=== PATIENT | male | born 1955 | race Caucasian/White ===

== ENCOUNTER 2021-11-19 11:55 | Outpatient (CLI) | payer OTHER, SELFPAY ==
--- NOTE | 2021-11-19 12:58 | ECG_ITS ---
Measurements Intervals Hector Rate: 61 P: 65 CT: 186 QRS: 29 QRSD: 94 T: 120 QT: 395 QTc: 398 Interpretive Statements SINUS RHYTHM WITH SINUS ARRHYTHMIA DELAYED PRECORDIAL R/S TRANSITION ST-T WAVE ABNORMALITY IN HIGH LATERAL LEADS- CONSIDER ISCHEMIA BASELINE ARTIFACT- I, II, III, AVR, AVL, AVF ABNORMAL ECG Electronically Signed On 11-19-2021 13:15:14 CDT by Gabe Lomax D.O.
[2021-11-19 13:28] LABS: Hematocrit 42.4 % (42.0-52.0); Hemoglobin 13.7 g/dL (14.0-18.0)
[2021-11-19 13:46] LABS: Anion Gap 2 mmol/L (8-16); Blood Urea Nitrogen 23 mg/dL (9-20); Calcium 9.3 mg/dL (8.4-10.2); Carbon Dioxide 31 mmol/L (22-30); Chloride 106 mmol/L (98-107); Estimated Glomerular Filt Rate > 60; Glucose 101 mg/dL (65-110); Potassium 4.3 mmol/L (3.4-5.0); Sodium 139 mmol/L (137-145)
[2021-11-19 14:08] LABS: Hemoglobin A1C 5.8 % (<5.7)
== END 2021-11-19 11:56 | disposition home or self-care (01) ==
PROVIDERS: Anesthesiology; PCP Physician Assistant; Visit Provider Urology
DX: N52.9 Male erectile dysfunction, unspecified (principal); I10 Essential (primary) hypertension; D64.9 Anemia, unspecified; Z01.818 Encounter for other preprocedural examination; R94.31 Abnormal electrocardiogram [ECG] [EKG]
CPT/HCPCS: 36415; 80048; 83036; 85014; 85018; 87086; 93005

== ENCOUNTER 2021-12-15 07:51 | Outpatient (CLI) | payer OTHER, SELFPAY ==
[2021-12-15 08:46] LABS: EDCOVIDSCREEN Negative (Negative)
== END 2021-12-15 07:52 | disposition home or self-care (01) ==
PROVIDERS: PCP Physician Assistant; Visit Provider Urology
DX: Z01.812 Encounter for preprocedural laboratory examination (principal); Z20.822 Contact with and (suspected) exposure to COVID-19
CPT/HCPCS: 87426; C9803

== ENCOUNTER 2021-12-16 00:37 | Day surgery (SDC) | payer OTHER, SELFPAY ==
[2021-11-19 12:29] VITALS: BMI 33.1
--- NOTE | 2021-11-19 12:29 | PC.NURSE ---
Report to the Outpatient Waiting Room, entrance under the green pavilion located off [facility], at time __1000 on date _12/16/21 . OR Time: ___1200 . - You and your visitor will be asked a series of questions to screen for COVID 19 for your protection. - Only one visitor is allowed at this time. - The patient visitor is requested to leave or wait in car when not with patient. - A mask is required within the hospital. Patients may have clear liquids (water, carbonated beverages, clear teas, apple juice) until 3 hours prior to surgery with a maximum of 20 ounces. - No food from midnight until time of surgery - Infants may have breast milk until 4 hours before surgery, infant formula 6 hours prior to surgery. - Children will be allowed to drink immediately following surgery. If applicable, please bring a bottle or sippy cup to assist with drinking. Juice, water, soda, and popsicles are readily available. For infants on formula, please bring formula the day of surgery. Pacifiers are allowed. Take the following medications with a SIP of water the morning of surgery: ___NONE Medications to discontinue per physician _PT STATES ASPIRIN AND _ALL VITAMINS/SUPPLEMENTS/PROBOTIC 7 DAYS PRE OP_PER DR WISEMAN Date to take last dose__12/08/21 Please no make-up, nail trinidadian, hairspray, perfume, deodorant, or body powder the day of surgery. No jewelry (including any body piercings) or valuables the day of surgery, leave them at home. Please take a shower or bath the night before, or the morning of, surgery with an antibacterial soap. Wear comfortable, loose fitting clothing. Children are encouraged to wear pajamas. - Jewelry must be removed prior to entering the operating room. Rings and piercings that are not removed may be cut off. - The hospital will not accept responsibility for valuables. - Please leave all valuables, including medications, at home the day of surgery. If you are going home after surgery, a licensed ems driver must drive you home. - NO public transportation without another adult. - We recommend that an adult stay with you for 24 hours following discharge. - We also recommend that you do not drive, make important decision, drink alcoholic beverages, or take any drugs that were not prescribed by your health care provider for at least 24 hours after your discharge time. For Pediatric surgeries, we recommend two adults accompany the child home (only one inside the building at this time). Follow any additional instructions given to you from your surgeon. If you or anyone in your household have experienced Covid symptoms in the past week, please notify your surgeon or the nurse liaison at the phone number below for possible testing. VERBAL AND WRITTEN instructions given to _PATIENT and asked if any additional questions and then verbalized understanding. Patient advised to call surgeon office or pre surgery nurse liaison [phone] if any additional questions.
[2021-12-16] VITALS (13 sets, daily range): BP systolic 108–169; BP diastolic 67–88; PULSE 61–73; RESP 12–20; TEMP 35.8–36.7; O2SAT 93–100
[2021-12-16] MEDS: GENTAMICIN SULFATE INJ 365 MG in DEXTROSE 5% 100 ML 98.09 MG IVPB (10:30)
[2021-12-16] MEDS: LACTATED RINGERS 1,000 ML 30 ML IV CONT ×2 (11:00→15:20)
--- NOTE | 2021-12-16 11:32 | P.PNAN_ITS ---
Anes - Initial Pre Proc Eval Procedure: Operation Date: 12/16/21 12:00 Proposed Procedures p Insertion Inflatable Penile Prosthesis - Virginia Rubalcava MD Date/Time: 12/16/21 11:32 Surgeon: Virginia Rubalcava MD Pre Op Diagnosis: ED Patient Data Age: 66 Gender: M Height: 1.65 m Weight: 84.7 kg Last Vital Signs Temp 97.7 F 12/16/21 10:57 Pulse 61 12/16/21 10:57 Resp 14 12/16/21 10:57 BP 164/79 H 12/16/21 10:57 Pulse Ox 100 12/16/21 10:57 O2 Del Method Room Air 12/16/21 10:57 Allergies Allergy/AdvReac Type Severity Reaction Status Date / Time No Known Allergies Allergy Verified 12/16/21 11:19 Home Medications Medication Instructions Recorded Confirmed Type anastrozole 1 mg tablet 1 tablet PO DAILY 11/19/21 11/19/21 History aspirin 81 mg tablet,delayed 1 tablet PO QPM 11/19/21 11/19/21 History release bacillus coagulans-inulin 1 1 cap PO DAILY 11/19/21 11/19/21 History billion cell-250 mg capsule (Probiotic Formula (inulin)) cholecalciferol (vitamin D3) 125 1 cap PO DAILY 11/19/21 11/19/21 History mcg (5,000 unit) capsule cranberry 500 mg capsule 500 mg PO DAILY 11/19/21 11/19/21 History diphenhydramine HCl 50 mg capsule 50 mg PO HS INSOMINA 11/19/21 11/19/21 History ferrous sulfate 325 mg (65 mg 325 mg PO DAILY 11/19/21 11/19/21 History iron) tablet hydrochlorothiazide 25 mg tablet 1 tablet PO DAILY 11/19/21 11/19/21 History krill 1 cap PO DAILY 11/19/21 11/19/21 History ana-pk-8-nnw-wlg-ahduwttnnaxes 300 mg-90 mg-24 mg-50 mg capsule (krill oil) levocarnitine tartrate 500 mg 1,000 mg PO BID 11/19/21 11/19/21 History capsule lisinopril 20 mg tablet 1 tablet PO QAM 11/19/21 11/19/21 History multivitamin 1 tablet PO BID 11/19/21 11/19/21 History polyethylene glycol 3350 17 1 ea PO DAILY 11/19/21 11/19/21 History gram/dose oral powder saw palmetto 160 mg capsule 160 mg PO DAILY 11/19/21 11/19/21 History tadalafil 20 mg tablet 1 tablet PO DAILY 11/19/21 11/19/21 History testosterone 10 mg/0.5 1 ea topical DAILY 11/19/21 11/19/21 History gram/actuation transdermal gel pump Patient hx anesthesia problems: none Family hx anesthesia problems: none Results Review: All pre-operative results and documents have been reviewed as part of the pre- operative evaluation. PMF Social History Social History Smoking status: Never smoker Living arrangements: with family Spiritual care concerns: No Anes - Eval Final PreProcedure Day of Procedure 12/16/21 11:32 Patient weight: obese Heart: regular rate and rhythm Lungs: clear to auscultation Airway: Mallampati scale class II Neurological: alert and oriented Last oral intake: >/= 8 hours ASA classification: III Emergent: no Anesthetic plan: proceed Results Review: All pre-operative results and documents have been reviewed as part of the pre- operative evaluation. Informed Consent: The patient's anesthetic plan and its attendant risks and benefits were discussed with the patient/family/POA. Questions were solicited and answers provided to the satisfaction of the patient/family/POA.
--- NOTE | 2021-12-16 12:08 | WPDHPUPDATE1 ---
History and Physical Update Update Date/Time: 12/16/21 12:08 History and Physical has been reviewed, including an updated exam of the patient. There are NO changes in the patient's condition. Risks, benefits, and alternatives have been discussed and questions answered. Patient agrees to proceed with procedure.
[2021-12-16] MEDS: ceFAZolin SODIUM 1 GM VIAL (13:22)
[2021-12-16] MEDS: BUPIVACAINE HCL 0.25% PF 30 ML VIAL INFILTRATE (14:43)
--- NOTE | 2021-12-16 15:19 | W.PM.PROC2 ---
Procedure Note - Detailed Date of Procedure 12/16/21 Pre-op Diagnosis ED Post-op Diagnosis Same Procedure Performed 1. Insertion of 3-piece inflatable penile prosthesis. 2. Artificial erection using pharmacological agent. Surgeon Virginia Rubalcava MD Description of Procedure DESCRIPTION OF OPERATION Informed consent obtained, patient taken to the operating room and given preoperative IV antibiotics with vancomycin and gentamicin. Additionally the patient has been taking oral levofloxacin and done a 3-day wash with Hibiclens. The patient was shaved. He was then prepped with Betadine scrub and paint followed by ChloraPrep. Sterile drapes were placed. We again prepped with ChloraPrep. A 16-[place] Jones catheter was inserted with return of clear urine. We then performed a pharmacologically induced erection with dilute lidocaine. There was a symmetric erection with very minimal dorsal curvature. We then made a penoscrotal 3 cm transverse incision. We dissected bluntly down to identify the corporal bodies taking great care not to injure the urethra. Stay sutures of 2-0 PDS were placed in the corporal body. We sharply opened the corpora. We then serially dilated up to a 12 Villegas dilator. We then measured the corpora. Measurements were 10.5 cm proximally and 12.5 cm distally. We irrigated and there was no injury. We then performed an identical procedure on the contralateral side. Measurements were 10.5cm proximal, 12.5 cm distal. Dilators were placed into the corpora bilaterally confirming that there was no crossover. We elected to place an AMS CX device 21 cm + 2 cm of rear tip extenders. We again irrigated the corporal bodies. We then inserted the prosthesis. We inflated using a surrogate reservoir and the device sat nicely with tips in the mid glans. We then deflated. We then closed the pre-placed 2-0 PDS sutures. We again inflated using the surrogate reservoir with an excellent cosmetic result. We then made a right lower quadrant incision for approximately 2 cm. We bluntly dissected down to the external oblique fascia. The fascia was opened. We then the rectus muscle and created a space superiorly in the sub rectus. We emptied the bladder prior to our incision. We then irrigated copiously. We pre-placed 0 Vicryl sutures. We placed the reservoir in the sub rectus space. We fill it with 100 mL and there was no back pressure. We then left 95 mL in the reservoir. Our pre-placed external oblique fascia sutures were closed. We then made a subdartos pouch in the midline for the pump placement. It sat nicely in the inferior scrotum. We then closed the hiatus with 3-0 Vicryl suture. The tubing was then brought up to the abdominal incision. Using the quick connect device, we connected the pump to the reservoir. We then cycled the device again and it functioned nicely. We then removed the stay sutures through the glans. We then again irrigated copiously. We closed the scrotal incision with a longitudinal followed by transverse 3-0 Vicryl sutures and then 3-0 Monocryl skin closure. The right lower quadrant incision was closed with 2-0 Vicryl to Edenilson's, 3-0 Vicryl deep dermal layer and a 4-0 Monocryl subcuticular closure. Glue was placed over all incisions. A compressive dressing was placed. Patient was awakened and taken to recovery room in stable condition. IV FLUIDS Per anesthesia. COMPLICATIONS None. EBL Minimal. FOLLOWUP The patient will be discharged home with a Jones catheter overnight. He will remove dressing and catheter tomorrow. Complications No immediate complications Condition Stable Disposition PACU
[2021-12-16] MEDS: fentaNYL CITRATE INJ (*CRX) 100 MCG/2 ML VIAL 25 MCG IV PUSH (16:33)
--- NOTE | 2021-12-16 17:06 | ADMGEN ---
This patient, Kenny Ambrocio, was admitted to 2 Medical Room 255-01. Patient/family oriented to hospital policies and general routines including ID bracelet, bed and alarms, visiting hours, pain management, procedures, bathroom and other care routines, personal items, smoking policy, room service/diet, and visiting hours. Information on how to activate the Rapid Response Team has been discussed. Patient/Family are encouraged to report perceived risks to care and to ask questions if they do not understand what they are told or what they should do. Report received from KAUSHIK Weiner.
[2021-12-16] MEDS: DOCUSATE SODIUM 100 MG CAPSULE PO (17:24)
[2021-12-16] MEDS: MULTIVITAMINS THERAPEUTIC TAB (*BKC) 1 TABLET PO (17:29)
[2021-12-16 17:50] LABS: Estimated CRCL calculation 73 ml/min; Estimated Glomerular Filt Rate > 60
[2021-12-16] MEDS: diphenhydrAMINE HCl CAP 25 MG CAPSULE 50 MG PO (21:22)
[2021-12-17 01:46] VITALS: BP 121/60; PULSE 69; RESP 16; TEMP 36.9; O2SAT 91
[2021-12-17 05:29] VITALS: BP 121/63; PULSE 70; RESP 16; TEMP 37.2; O2SAT 95
[2021-12-17] MEDS: levoFLOXacin 500 MG TABLET PO (06:14)
--- NOTE | 2021-12-17 07:19 | WPDUROPN2 ---
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 - Male erectile dysfunction, unspecified Status: Acute Assessment and Plan: Doing well POD#1 Genitalia unwrapped - scant ecchymosis without errythema or edema Catheter out for voiding trial Discharge later this morning if voids OK Subjective Subjective Date/Time Seen: 12/17/21 07:19 Sitting up and reading a book - comfortable / uneventful night Review of Systems Cardiovascular: Cardiovascular: Denies chest pain, Denies lightheadedness, Denies palpitations and Denies dyspnea Respiratory: Respiratory: Denies dyspnea Gastrointestinal: Gastrointestinal: Denies diarrhea, Denies nausea and Denies vomiting Genitourinary: Genitourinary: Denies hematuria and Denies dysuria Endocrine: Endocrine: Denies palpitations Exam Const: General: no acute distress Resp: Effort & Inspection: normal respiratory effort GI: Inspection: non-distended GI Palp: No abdominal tenderness and No Guarding due to palpation present (GI) Auscultation: normal bowel sounds : Male General Exam: Yes normal external exam and Yes ecchymosis (scant) Urinary Catheter: Urinary Catheter: patent and draining and urine clear Objective Data Vital Signs Vital Signs: Vital Signs - 24 hr 12/16/21 10:57 12/16/21 15:20 12/16/21 15:35 Temperature 97.7 F 98.0 F Pulse Rate 61 64 61 Respiratory Rate 14 20 12 Blood Pressure 164/79 H 138/81 137/77 Pulse Oximetry 100 97 100 Oxygen Delivery Room Air Simple Face Mask Simple Face Mask Oxygen Flow Rate 6 8 12/16/21 15:50 12/16/21 16:05 12/16/21 16:20 Temperature Pulse Rate 62 61 63 Respiratory Rate 16 14 14 Blood Pressure 143/75 H 142/88 H Pulse Oximetry 99 93 95 Oxygen Delivery Room Air Room Air Room Air Oxygen Flow Rate 12/16/21 16:35 12/16/21 17:04 12/16/21 17:19 Temperature 96.5 F L 97.8 F Pulse Rate 64 61 68 Respiratory Rate 18 16 16 Blood Pressure 108/78 169/87 H 150/88 H Pulse Oximetry 96 98 99 Oxygen Delivery Room Air Oxygen Flow Rate 12/16/21 17:36 12/16/21 17:10 12/16/21 18:36 Temperature 97.1 F L 97.3 F L Pulse Rate 67 71 Respiratory Rate 16 16 Blood Pressure 139/74 143/69 H Pulse Oximetry 97 94 Oxygen Delivery Room Air Oxygen Flow Rate 12/16/21 19:27 12/16/21 22:30 12/17/21 01:46 Temperature 97.4 F L 97.7 F 98.5 F Pulse Rate 73 66 69 Respiratory Rate 12 16 16 Blood Pressure 138/67 135/68 121/60 Pulse Oximetry 95 96 91 Oxygen Delivery Oxygen Flow Rate 12/17/21 05:29 Temperature 98.9 F Pulse Rate 70 Respiratory Rate 16 Blood Pressure 121/63 Pulse Oximetry 95 Oxygen Delivery Oxygen Flow Rate Intake/Output Intake/Output: Intake & Output 12/14/21 12/15/21 12/16/21 12/17/21 23:59 23:59 23:59 23:59 Intake Total 1249.125 770 Output Total 550 2300 Balance 699.125 -1530 Meds/Results Medications: Active Medications Generic Name Dose Route Start Last Admin Trade Name Freq PRN Reason Stop Dose Admin Hydrocodone Bitart/Acetaminophen 1 tab 12/16/21 16:51 Hydrocodone/Acetaminophen (*Crx) 5-325 Mg Tablet PO Q4H PRN Pain Rated 1-6 Anastrozole 1 mg 12/17/21 09:00 Anastrozole (*Chemo) 1 Mg Tablet PO DAILY HADLEY Diphenhydramine HCl 50 mg 12/16/21 21:00 12/16/21 21:22 Diphenhydramine Hcl Cap 25 Mg Capsule PO 50 mg HS HADLEY Administration Docusate Sodium 100 mg 12/16/21 17:00 12/16/21 17:24 Docusate Sodium 100 Mg Capsule PO 100 mg BID HADLEY Administration Enoxaparin Sodium 30 mg 12/17/21 09:00 Enoxaparin 30 Mg/0.3 Ml Syringe SUB-Q DAILY HADLEY Ferrous Sulfate 324 mg 12/17/21 09:00 Ferrous Sulfate 324 Mg Tablet PO DAILY HADLEY Hydrochlorothiazide 25 mg 12/17/21 09:00 Hydrochlorothiazide 25 Mg Tablet PO DAILY HADLEY Gentamicin Sulfate/Sodium Chloride 80 mg in 50 mls @ 100 mls/hr 12/17/21 11:00 Gentamicin 80mg/Sod Chl 50 Ml
[2021-12-17] MEDS: MULTIVITAMINS THERAPEUTIC TAB (*BKC) 1 TABLET PO (08:08)
[2021-12-17] MEDS: FERROUS SULFATE 324 MG TABLET PO (08:08)
[2021-12-17] MEDS: hydroCHLOROthiazide 25 MG TABLET PO (08:08)
[2021-12-17] MEDS: ANASTROZOLE (*CHEMO) 1 MG TABLET PO (08:08)
[2021-12-17] MEDS: DOCUSATE SODIUM 100 MG CAPSULE PO (08:08)
[2021-12-17] MEDS: lisinopriL 20 MG TABLET PO (08:08)
[2021-12-17] MEDS: polyethylene glycoL 3350 17 GM POWD.PACK PO (08:10)
[2021-12-17] MEDS: HYDROcodone/acetaminophen (*CRX) 5-325 MG TABLET 1 TAB PO (08:15)
[2021-12-17 08:23] LABS: Mean Platelet Volume 10.6 fl (7.4-10.4); Platelet Count Result 227 k/mm3 (150-375)
[2021-12-17] MEDS: ENOXAPARIN 30 MG/0.3 ML SYRINGE SUB-Q (08:42)
[2021-12-17] MEDS: GENTAMICIN 80MG/SOD CHL 50 ML 80 MG/50 ML BAG 100 MG IVPB (10:35)
[2021-12-17 10:43] VITALS: BP 136/68; PULSE 72; RESP 16; TEMP 36.6; O2SAT 99
== END 2021-12-17 13:28 | disposition home or self-care (01) ==
LOC: ANHSURGERY 15:53 → ANH2MED 16:52
PROVIDERS: Urology; PCP Physician Assistant; Visit Provider Urology
PROC: (CPT 54405; principal; 2021-12-16 12:00)
DX: N52.9 Male erectile dysfunction, unspecified (principal); I10 Essential (primary) hypertension; E78.00 Pure hypercholesterolemia, unspecified; Z79.811 Long term (current) use of aromatase inhibitors; Z79.82 Long term (current) use of aspirin; E66.9 Obesity, unspecified; Z68.31 Body mass index [BMI] 31.0-31.9, adult
CPT/HCPCS: 54405; 54235; 36415; 82565; 85049; A9270; C1813; J0690; J1100; J1580; J1650; J2250; J2405; J2704; J3010; J3370; J7030; J7120